=== PATIENT | female | born 1955 | race Caucasian/White ===

== ENCOUNTER 2018-01-04 13:45 | Emergency (ER) | payer BC, SELFPAY ==
[2018-01-04 13:47] VITALS: BP 164/69; PULSE 80; RESP 16; TEMP 36.7; O2SAT 99
--- NOTE | 2018-01-04 15:14 | NUR.NOTE ---
Nursing Note: Patient stated to [facility] that she was leaving and that she wanted us to mail the discharge instructions to her. Diana De La Torre.
--- NOTE | 2018-01-04 15:14 | W.ED.GENAD ---
Discharge Plan Disposition Patient Disposition: HOME Condition: Stable Discharge Details Chief Complaint: RespSymp Clinical Impression: Post viral syndrome, Acute serous otitis media of both ears Primary Care Provider: Cirilo Johnson ED Provider: Bg Torres Home Meds and New Rx's Prescriptions: Continue cholecalciferol (vitamin D3) 1,000 UNIT capsule 1,000 unit PO DAILY RF: 0 amlodipine 2.5 MG tablet 2.5 mg PO DAILY RF: 0 Discharge Instructions Instructions: Upper Respiratory Infection (ED), Serous Otitis Media (ED) Additional Instructions: Return immediately to the emergency for any new or worsening symptoms otherwise follow-up with your primary care provider as needed for reassessment. You may take [id number] symptomatic medication. Referrals: Cirilo Johnson MD [Primary Care Provider] - (As needed for reassessment or if not improving over the next week.) Discharge Data Discharge Date/Time-TO BE ENTERED AT DEPARTURE: 01/04/18 15:15 Medical Decision Making Patient presenting to the emergency department for chief complaint of earache and sore throat. Patient states that 2 weeks ago she had bronchitis which mostly resolved then 3 days ago she started having some postnasal drip, ear pain, and sore throat. Patient denies any fever chills, return of cough, or worsening of symptoms but due to upcoming travel she is concerned about having strep throat or serious infection. Physical exam is unremarkable except for some clear fluid seen behind bilateral TMs. [facility] staff initiated protocol for rapid strep testing which was negative. I feel that patient has post viral symptoms and was encouraged to take [id number] symptomatic medication as needed and to follow-up with her primary care provider for any further reassessment as needed. After discussion of diagnosis and plan of care patient has no further needs, questions, or concerns and states clear understanding to return to the emergency department for any worsening symptoms. HPI General Mode of arrival: ambulatory. Date/Time Provider Initiated Documentation: 01/04/18 14:48. Limitations to Documentation: no limitations. Information obtained by: patient. History of Present Illness 62 year old F presents to the emergency department with the chief complaint of Ear pain, sore throat, described as moderate, Quality is described as aching, dull and other, and is localized to the head (Bilateral ear) and mouth (Sore throat). Patient started experiencing this day(s) (2) and it has been constant. No relieving factors improve symptom(s), No exacerbating factors reported . Patient notes no other symptoms.. Patient did receive the following treatments prior to arrival, none Related Data Home Medications Medication Instructions Recorded Confirmed cholecalciferol (vitamin D3) 1,000 unit PO DAILY 01/02/14 01/04/18 amlodipine 2.5 mg PO DAILY tab-cap 01/03/15 01/04/18 Allergies Allergy/AdvReac Type Severity Reaction Status Date / Time lisinopril Allergy Intermediate RASH Unverified 01/04/18 13:51 losartan Allergy Intermediate RASH Unverified 01/04/18 13:51 General Stated Complaint: RespSymp KIM: 4 Review of Systems Constitutional Denies body ache(s), Denies chills, Denies fever(s), Denies headache(s) and Denies malaise Eyes Denies eye discharge ENT Denies ear discharge, Reports otalgia, Denies facial pain, Denies headache(s), Denies nasal congestion, Denies nasal discharge, Denies neck pain, Reports post nasal drip, Denies sinus pain, Denies sinus pressure, Reports sore throat and Denies throat swelling Cardiovascular Denies chest pain and Denies dyspnea Respiratory Reports cough (Now resolved) and Denies dyspnea Musculoskeletal Denies joint swelling and Denies neck pain Integumentary/Breasts Denies rash Neurologic Denies headache(s) Allergic/Immunologic Denies throat swelling PFSH Family History Daughter Muscular dystrophy Other Diabetes Heart disease Hyperlipidemia Medical History Gallbladder calculus Hyperlipidemia Hypertension Menorrhagia Migraine Social History Smoking/Tobacco Use Status: Former Tobacco Use Surgical History Augmentation mammoplasty (~2008) Cholecystectomy Endometrial Ablation Extraction of cataract Open Carpal Tunnel release Exam Const General: cooperative, comfortable and no acute distress Orientation: alert and awake [facility] Head: normal to inspection, normocephalic and atraumatic Ears: hearing grossly normal bilaterally and TM abnormal wth effusion serous bilaterally General nose exam: external nose normal Face and sinus: no erythema, no sinus tenderness and no tenderness Mouth: oral mucosae normal, no drooling, no muffled voice and no trismus Throat: posterior oropharynx normal Neck Neck: normal visual inspection, full ROM, no lymphadenopathy, no meningeal signs, trachea midline and supple Resp Effort & Inspection: normal respiratory effort, able to speak in complete sentences and cough Quality of cough: dry Auscultation: clear to auscultation bilaterally Cardio Rate: regular rate Rhythm: regular rhythm Heart Sounds: S1 normal, S2 normal, normal S1 and S2, no click, no gallops, no murmurs and no rubs Skin General skin exam: no rashes or lesions noted and dry skin (warm) Neuro General: alert, awake, oriented x3, gait normal and moves all extremities Cognition: normal cognition Speech: speech normal Course Vital Signs Temperature 36.7 C 01/04/18 13:47 Pulse 80 01/04/18 13:47 Respiratory Rate 16 01/04/18 13:47 Blood Pressure 164/69 H 01/04/18 13:47 Pulse Oximetry 99 01/04/18 13:47 Temperature 36.7 C 01/04/18 13:47 Temperature Source Skin 01/04/18 13:47 Pulse 80 01/04/18 13:47 Respiratory Rate 16 01/04/18 13:47 Respiratory Effort 01/04/18 13:53 Respiratory Depth Normal 01/04/18 13:52 Blood Pressure 164/69 H 01/04/18 13:47 Blood Pressure Position Sitting 01/04/18 13:47 Pulse Oximetry 99 01/04/18 13:47 Oxygen Delivery Method Room Air 01/04/18 13:47 Oxygen Flow Rate 0 01/04/18 13:47 Pain Level 2 01/04/18 13:47 Lab/Test Results Lab/Test Results: 01/04/18 14:30 Tonsil - Not Specified Streptococcus Screen ([place]) - Pending POC Strep Test-CHRISTOPHER(Rapid) Start: 01/04/18 14:26 Freq: Status: Active Protocol: Document 01/04/18 14:26 AB (Rec: 01/04/18 14:26 AB [email or web address]) Strep test-CHRISTOPHER([facility])-POC POC-Strep test-CHRISTOPHER ([facility]apid) Negative POC-Strep test-CHRISTOPHER (Rapid) Negative
[2018-01-04 15:16] VITALS: BP 164/69; PULSE 80; RESP 16; TEMP 36.7; O2SAT 99
--- NOTE | 2018-01-04 15:20 | ED.GENADUL_ITS ---
Discharge Plan Disposition Patient Disposition: HOME Condition: Stable Discharge Details Chief Complaint: RespSymp Clinical Impression: Post viral syndrome, Acute serous otitis media of both ears Primary Care Provider: Cirilo Johnson ED Provider: Bg Torres Home Meds and New Rx's Prescriptions: Continue cholecalciferol (vitamin D3) 1,000 UNIT capsule 1,000 unit PO DAILY RF: 0 amlodipine 2.5 MG tablet 2.5 mg PO DAILY RF: 0 Discharge Instructions Instructions: Upper Respiratory Infection (ED), Serous Otitis Media (ED) Additional Instructions: Return immediately to the emergency for any new or worsening symptoms otherwise follow-up with your primary care provider as needed for reassessment. You may take [id number] symptomatic medication. Referrals: Cirilo Johnson MD [Primary Care Provider] - (As needed for reassessment or if not improving over the next week.) Discharge Data Discharge Date/Time-TO BE ENTERED AT DEPARTURE: 01/04/18 15:15 Medical Decision Making Patient presenting to the emergency department for chief complaint of earache and sore throat. Patient states that 2 weeks ago she had bronchitis which mostly resolved then 3 days ago she started having some postnasal drip, ear pain , and sore throat. Patient denies any fever chills, return of cough, or worsening of symptoms but due to upcoming travel she is concerned about having strep throat or serious infection. Physical exam is unremarkable except for some clear fluid seen behind bilateral TMs. staff respiratory therapist initiated protocol for rapid strep testing which was negative. I feel that patient has post viral symptoms and was encouraged to take [id number] symptomatic medication as needed and to follow-up with her primary care provider for any further reassessment as needed. After discussion of diagnosis and plan of care patient has no further needs, questions, or concerns and states clear understanding to return to the emergency department for any worsening symptoms. HPI General Mode of arrival: ambulatory . Date/Time Provider Initiated Documentation: 01/04/18 14:48 . Limitations to Documentation: no limitations . Information obtained by: patient . History of Present Illness 62 year old F presents to the emergency department with the chief complaint of Ear pain, sore throat, described as moderate, Quality is described as aching , dull and other, and is localized to the head (Bilateral ear) and mouth ( Sore throat). Patient started experiencing this day(s) (2) and it has been constant. No relieving factors improve symptom(s), No exacerbating factors reported . Patient notes no other symptoms.. Patient did receive the following treatments prior to arrival, none Related Data Home Medications Medication Instructions Recorded Confirmed cholecalciferol (vitamin D3) 1,000 unit PO DAILY 01/02/14 01/04/18 amlodipine 2.5 mg PO DAILY tab-cap 01/03/15 01/04/18 Allergies Allergy/AdvReac Type Severity Reaction Status Date / Time lisinopril Allergy Intermediate RASH Unverified 01/04/18 13:51 losartan Allergy Intermediate RASH Unverified 01/04/18 13:51 General Stated Complaint: RespSymp KIM: 4 Review of Systems Constitutional Denies body ache(s), Denies chills, Denies fever(s), Denies headache(s) and Denies malaise Eyes Denies eye discharge ENT Denies ear discharge, Reports otalgia, Denies facial pain, Denies headache(s), Denies nasal congestion, Denies nasal discharge, Denies neck pain, Reports post nasal drip, Denies sinus pain, Denies sinus pressure, Reports sore throat and Denies throat swelling Cardiovascular Denies chest pain and Denies dyspnea Respiratory Reports cough (Now resolved) and Denies dyspnea Musculoskeletal Denies joint swelling and Denies neck pain Integumentary/Breasts Denies rash Neurologic Denies headache(s) Allergic/Immunologic Denies throat swelling PFSH Family History Daughter Muscular dystrophy Other Diabetes Heart disease Hyperlipidemia Medical History Gallbladder calculus Hyperlipidemia Hypertension Menorrhagia Migraine Social History Smoking/Tobacco Use Status: Former Tobacco Use Surgical History Augmentation mammoplasty (~2008) Cholecystectomy Endometrial Ablation Extraction of cataract Open Carpal Tunnel release Exam Const General: cooperative, comfortable and no acute distress Orientation: alert and awake [facility] Head: normal to inspection, normocephalic and atraumatic Ears: hearing grossly normal bilaterally and TM abnormal wth effusion serous bilaterally General nose exam: external nose normal Face and sinus: no erythema, no sinus tenderness and no tenderness Mouth: oral mucosae normal, no drooling, no muffled voice and no trismus Throat: posterior oropharynx normal Neck Neck: normal visual inspection, full ROM, no lymphadenopathy, no meningeal signs , trachea midline and supple Resp Effort & Inspection: normal respiratory effort, able to speak in complete sentences and cough Quality of cough: dry Auscultation: clear to auscultation bilaterally Cardio Rate: regular rate Rhythm: regular rhythm Heart Sounds: S1 normal, S2 normal, normal S1 and S2, no click, no gallops, no murmurs and no rubs Skin General skin exam: no rashes or lesions noted and dry skin (warm) Neuro General: alert, awake, oriented x3, gait normal and moves all extremities Cognition: normal cognition Speech: speech normal Course Vital Signs Temperature 36.7 C 01/04/18 13:47 Pulse 80 01/04/18 13:47 Respiratory Rate 16 01/04/18 13:47 Blood Pressure 164/69 H 01/04/18 13:47 Pulse Oximetry 99 01/04/18 13:47 Temperature 36.7 C 01/04/18 13:47 Temperature Source Skin 01/04/18 13:47 Pulse 80 01/04/18 13:47 Respiratory Rate 16 01/04/18 13:47 Respiratory Effort 01/04/18 13:53 Respiratory Depth Normal 01/04/18 13:52 Blood Pressure 164/69 H 01/04/18 13:47 Blood Pressure Position Sitting 01/04/18 13:47 Pulse Oximetry 99 01/04/18 13:47 Oxygen Delivery Method Room Air 01/04/18 13:47 Oxygen Flow Rate 0 01/04/18 13:47 Pain Level 2 01/04/18 13:47 Lab/Test Results Lab/Test Results: 01/04/18 14:30 Tonsil - Not Specified Streptococcus Screen ([place]) - Pending POC Strep Test-[facility]RISTOPHER(Rapid) Start: 01/04/18 14: 26 Freq: Status: Active Protocol: Document 01/04/18 14:26 AB (Rec: 01/04/18 14:26 AB [id number]) Strep test-[facility]STOPHER([facility])-POC POC-Strep test-[facility] ([facility]) Negative POC-Strep test-CHRISTOPHER ([facility]) Negative
== END 2018-01-04 15:15 | disposition home or self-care (01) ==
PROVIDERS: Emergency Provider Nurse Practitioner Family; PCP General Practice
DX: H65.03 Acute serous otitis media, bilateral (principal); R09.82 Postnasal drip; B34.9 Viral infection, unspecified; J02.8 Acute pharyngitis due to other specified organisms; I10 Essential (primary) hypertension
CPT/HCPCS: 87880; 99282; 87081

== ENCOUNTER 2018-06-08 07:00 | Outpatient (CLI) | payer MEDICARE, BC, SELFPAY ==
[2018-06-08 09:44] LABS: Cholesterol 304 mg/dL (50-200); Glucose 93 mg/dL (70-100); HDL Cholesterol 84 mg/dL (40-60); LDL CHOLESTEROL 202 mg/dL (<100); Triglyceride 56 mg/dL (30-150)
== END 2018-06-08 07:20 ==
PROVIDERS: PCP General Practice; Visit Provider General Practice
DX: I10 Essential (primary) hypertension (principal); E78.00 Pure hypercholesterolemia, unspecified
CPT/HCPCS: 36415; 80061; 82947; 83721